=== PATIENT | female | born 1955 | race Caucasian/White ===

== ENCOUNTER 2025-07-15 17:01 | Emergency (ER) | payer MEDICARE ==
[~2025-07-15] VITALS: Ht 154.9 cm; Wt 100.5 kg
[2025-07-15] MEDS ORDERED: MECL-86 (17:15)
[2025-07-15] MEDS ORDERED: FLUT1BLS8 (17:15)
[2025-07-15] MEDS ORDERED: ROSU10TA61 (17:15)
[2025-07-15 18:05] LABS: BASO # 0.0 10^3/uL (0.0-0.2); BASO % 0.7 % (0.0-1.0); EOS # 0.1 10^3/uL (0.0-0.5); EOS % 2.3 % (0.0-3.0); LYMPH # 2.0 10^3/uL (1.5-5.0); LYMPH % 33.8 % (24.0-44.0); MONO # 0.7 10^3/uL (0.0-0.8); MONO % 11.2 % (2.0-8.0); NEUTROPHILS # 3.1 10^3/uL (1.5-8.5); NEUTROPHILS % 51.8 % (36.0-66.0); PLATELET COUNT, AUTOMATED 282 10^3/uL (150-450)
[2025-07-15] MEDS ORDERED: ISOVUE-370 76% 100 ML VIAL As Ordered ONE (19:51)
[2025-07-15 20:43] LABS: CK-MB VALUE MASS < 1.0 NG/ML (<3.6); CPK CREATINE PHOSPHOKINASE 44 U/L (34-145)
[2025-07-15] MEDS: NS (Normal Saline) 0.9% 1,000 ML IV ONE (20:48)
[2025-07-15] MEDS: ACETAMINOPHEN *IV* 1,000 MG in IV 1 EA IV ONE (20:49)
[2025-07-15] MEDS: KETOROLAC 30 MG/ML 1 ML VIAL IV ONE (20:49)
[2025-07-15] MEDS: diphenhydrAMINE 50 MG/ML VIAL IV ONE (20:49)
[2025-07-15 22:11] LABS: CK-MB VALUE MASS < 1.0 NG/ML (<3.6)
[2025-07-15 22:14] LABS: CPK CREATINE PHOSPHOKINASE 40 U/L (34-145)
[2025-07-16] VITALS: BP 134/61
[2025-07-16 00:05] VITALS: TEMP 97.4; O2SAT 98
== END 2025-07-16 00:17 | disposition home or self-care (01) ==
LOC: M ED 17:01
DX: R51.9 Headache, unspecified (principal); H81.4 Vertigo of central origin; E78.5 Hyperlipidemia, unspecified; J45.909 Unspecified asthma, uncomplicated; Z98.84 Bariatric surgery status; Z90.49 Acquired absence of other specified parts of digestive tract; Z88.8 Allergy status to other drugs, medicaments and biological substances; Z79.899 Other long term (current) drug therapy
CPT/HCPCS: 70450; 71275; 80047; 82550; 82553; 84484; 85025; 93005; 96365; 96366; 96375; 99285; J0131; J1200; J1885; J2765; Q9967

== ENCOUNTER → 2025-09-25 | Outpatient (CLI) | payer MEDICARE ==
[~2025-09-25] MED LIST: FLUT1BLS8; MECL-86; ROSU10TA90
== END ==
LOC: M WHC 10:57
PROVIDERS: ATTEND Emergency Medicine
DX: Z12.31 Encounter for screening mammogram for malignant neoplasm of breast (principal); R92.323 Mammographic fibroglandular density, bilateral breasts

== ENCOUNTER → 2025-10-08 | Outpatient (CLI) | payer MEDICARE | LOC: M SLEEP 20:00 | PROVIDERS: ATTEND Internal Medicine Pulmonary Disease | DX: G47.33 Obstructive sleep apnea (adult) (pediatric) (principal) ==